=== PATIENT | female | born 1930 | race Caucasian/White ===

== ENCOUNTER 2016-12-04 16:47 | Inpatient (IN) | payer OTHER ==
[~2016-12-04] VITALS: Ht 157.5 cm; Wt 94.8 kg
--- NOTE | ~2016-12-04 | H ---
[facility] [place] [address] HISTORY AND PHYSICAL Name: MEGHAN CAMARGO Room #: 428-P ADM IN M.R.#: [id number] Admission: 12/04/16 Attend Phys: Nahid Melton MD Discharge: Date of : 31 Report #: [id number] THIS REPORT FOR: //name// CC: Ginger Melton DATE OF SERVICE: 12/04/2016 CHIEF COMPLAINT: Generalized weakness, poor appetite, possible facial droop and urinary incontinence. HISTORY OF PRESENT ILLNESS: The patient is an 86-year-old female with history of hypertension, history of urinary incontinence, recent urinary tract infection, was referred to the emergency room because of possible left-sided facial droop. The patient was diagnosed with urinary tract infection on November 17 and finished her antibiotic 8 days ago with no improvement. She has had persistent urinary incontinence. She had to use a diaper. Denies any fever, chills, no abdominal pain; no nausea, vomiting or diarrhea. The patient has had very poor appetite and generalized weakness. She does have history of urinary continence and has been taking trospium for the last 4-5 years, apparently it has not been working. She has lost around 20 pounds since Thanksgi. She has occasional blood in the urine. No dysuria. The patient denies any focal numbness or weakness of her extremity, no speech disturbance. She also complains of dry mouth. PAST MEDICAL HISTORY: Significant for hypertension, urinary incontinence, history of normal vaginal delivery, history of tonsillectomy, polio as a child. She had a pulmonary embolism in 2008, was treated with warfarin for 7-9 months. SOCIAL HISTORY: No smoking, alcohol abuse, or illicit drug abuse. FAMILY HISTORY: No hypertension or diabetes. No coronary artery disease. ALLERGIES: No known drug allergy. HOME MEDICATIONS: Includes aspirin, torsemide, lisinopril, allopurinol and trospium. REVIEW OF SYSTEMS: CONSTITUTIONAL: She has lost weight around 20 pounds since gi. No fever or chills. EYES: No change in vision. THROAT: Complains of dry mouth. CARDIOVASCULAR: No chest pain, dizziness, palpitations. RESPIRATORY: No cough, expectoration. [facility] [address] [place] [address] HISTORY AND PHYSICAL Name: MEGHAN CAMARGO Room #: 428-P [facility] IN ..#: [id number] Admission: 12/04/16 Attend Phys: Nahid Melton MD Discharge: Date of : 31 Report #: [id number] GASTROINTESTINAL: No nausea, vomiting, abdominal pain. GENITOURINARY: As above. NEUROLOGIC: No focal numbness or weakness of the extremities. PSYCHIATRIC: No anxiety or depression. The 12-point review of system is negative other than the positives and negatives dictated in the history of present illness and in the review of systems. PHYSICAL EXAMINATION: VITAL SIGNS: Blood pressure initially in the ER was 112/58, repeat is 94/49, heart rate is 105 per minute, afebrile. GENERAL: The patient is awake and alert, not in acute respiratory distress. HEENT: Pupils equal, reactive to light, nonicteric conjunctivae. THROAT: She has a dry oral mucosa. NECK: Supple, no JVD, no bruit, no lymphadenopathy. CARDIOVASCULAR SYSTEM: S1, S2, negative S3, no murmur. CHEST: Bilateral air entry present. Clear on auscultation. ABDOMEN: Soft, bowel sounds present, no mass, no organomegaly, no tenderness. PERIPHERY: No pedal edema. No calf tenderness. Dorsalis pedis 1+. NEUROLOGICAL: No gross motor or sensory deficit. She has mild right CVA tenderness. LABORATORY DATA: Reviewed. Her white count is elevated at 18.1, white count on November 17 was 14.1; hemoglobin and hematocrit are within normal limits, platelets are 263. Differential on the white count showed 77.8% segs. Coagulation studies were normal. Chemistry showed potassium of 5.7. Her bicarbonate is 26. BUN and creatinine are 61 and 2.9. Creatinine on November 17 was 1.6. She does have chronic kidney disease and is followed by Dr. Gaspar. AST and ALT are slightly elevated. Alkaline phosphatase 200, troponin less than 0.04. IMAGING: She had a CT of the brain done, which showed no acute abnormality. There is atrophy and chronic changes. She had a chest x-ray done on December 04, which showed no acute abnormality. ASSESSMENT AND PLAN: 1. Urinary incontinence with recurrent urinary tract infection. The patient will be started on IV cefepime. We will send a urine for culture and adjust antibiotic as needed. We will also consult Dr. Montesinos, urologist regarding urinary incontinence. 2. Acute renal failure, likely prerenal secondary to urinary tract infection/poor appetite/angiotensin converting enzyme inhibitor and diuretics. We will hold off on lisinopril and diuretic at present. The patient will be hydrated with IV fluids. We will get a renal ultrasound. We will also consult nephrology. 3. Deep venous thrombosis prophylaxis, will be on heparin subq for deep venous thrombosis prophylaxis. [address] [address] HISTORY AND PHYSICAL Name: MEGHAN CAMARGO Room #: 428-P [facility] IN M.R.#: [id number] Admission: 12/04/16 Attend Phys: Nahid Melton MD Discharge: Date of : 31 Report #: [id number] 4. History of hypertension. We will hold off on Demadex and lisinopril at present. Blood pressure in fact is on the lower end. She will be continued on IV hydration. 5. History of pulmonary embolism in 2008, treated with warfarin. 6. Elevated liver enzymes. We will check ultrasound of the liver and also will repeat her LFTs in the morning. Treatment plan has been explained to the patient and family in detail. <ELECTRONICALLY SIGNED> By: Nahid Melton MD 12/07/16 1417 1846 1930 Nahid Melton MD /nt
--- NOTE | ~2016-12-04 | EKG ---
[address] [address] ELECTROCARDIOGRAM REPORT Name: MEGHAN CAMARGO Room #: 428-P ADM IN M.R.#: [id number] Admission: 12/04/16 Attend Phys: Nahid Melton MD Discharge: Date of : 31 Report #: [id number] THIS REPORT FOR: //name// [facility] ED Test Date: 2016-12-04 Test Time: 16:54:06 Pat Name: MEGHAN CAMARGO Department: Room: 428 Gender: F Reel Cutter: MZOOK : 1930 Requested By: Adela Perez Order Number: [id number] MD: Braxton Griffith Measurements Intervals [place] Rate: 104 P: -33 WI: 144 QRS: -39 QRSD: 90 T: 59 QT: 305 QTc: 402 Interpretive Statements Sinus tachycardia RSR' in V1 or V2, probably normal variant Inferior infarct, old Compared to ECG 11/17/2016 14:29:58 RSR' in V1 or V2 now present Electronically Signed On 12-05-2016 8:18:51 RESPIRATORY CARE ASSISTANT by Braxton Griffith [email or web address] <ELECTRONICALLY SIGNED> By: Braxton Griffith MD 12/05/16 0818 1654 1654 Braxtno Griffith MD /EPI
--- NOTE | ~2016-12-04 | 2DMMODE ---
[facility] [place] [address] 2 D/M-MODE ECHOCARDIOGRAM Name: RAMANMEGHAN Room #: 428-P [facility] IN .R.#: [id number] Admission: 12/04/16 Attend Phys: Grant Salas Discharge: Date of : 31 Date of Service: 12/08/16 0951 Report #: [id number] THIS REPORT FOR: //name// Transthoracic Echocardiography Ordering physician: Nereida Lay Referring physician: Ginger Horta Brianna Student: RANJIT Coronel Indications/History: Aortic stenosis, Dyspnea. BP: 120 / HR: 93bpm Height: 62in Weight: 208.6lb 55 Study data: M-mode, complete 2D, complete spectral Doppler, and color Doppler. Location: Echo laboratory. Routine. Image quality was adequate. 2D measurements Normal Normal LVID ED 31.4mm 36-57 IVS ED 11.3mm 6-11 LVID ES 20.3mm 23-40 LVPW ED 11.5mm 6-11 LA volume 24ml/m2 16-28 AoRoot diam 24mm 21-37 index ED LVOT diameter 21mm 18-23 Findings: Left ventricle: The cavity size was normal. Wall thickness was at the upper limits of normal. Systolic function was hyperdynamic. The estimated ejection fraction was in the range of 65% to 70%. Wall motion was normal. Right ventricle: The cavity size was normal. Systolic function was normal. Right atrium: The atrium was normal in size. Left atrium: The atrium was normal in size. Volume index: 24ml/m2 (S). Aortic valve: Trileaflet; moderately thickened, moderately calcified leaflets. Doppler: There was moderate stenosis. Mild regurgitation. Peak velocity: 327cm/s (S). Valve [facility] [address] [place] [address] 2 D/M-MODE ECHOCARDIOGRAM Name: MEGHAN CAMARGO #: 428-P [facility] IN M.R.#: [id number] Admission: 12/04/16 Attend Phys: Grant Salas Discharge: Date of : 31 Date of Service: 12/08/16 0951 Report #: [id number] area: 1.2cm2(VTI). Mean gradient: 25.9mm Hg (S). Peak gradient: 42.8mm Hg (S). Mitral valve: Calcified annulus. Doppler: There was no evidence for stenosis. No regurgitation. Peak E-wave velocity: 66.4cm/s. Peak A-wave velocity: 113.5cm/s. Tricuspid valve: Structurally normal valve. Doppler: There was no evidence for stenosis. Trivial regurgitation. Regurgitant peak velocity: 246.9cm/s. Peak RV-RA gradient: 24mm Hg (S). Pulmonic valve: Structurally normal valve. Doppler: There was no evidence for stenosis. No regurgitation. Pericardium: There was no pericardial effusion. Aorta: Aortic root: The aortic root was normal in size. Pulmonary artery: Systolic pressure was estimated to be 29mm Hg. Diastolic function: Doppler parameters are consistent with abnormal left ventricular relaxation (grade 1 diastolic dysfunction). Systemic veins: Inferior vena cava: The vessel was normal in size; the respirophasic diameter changes were in the normal range (= 50%). Conclusions 1. Left ventricle: The cavity size was normal. Wall thickness was at the upper limits of normal. Systolic function was hyperdynamic. The estimated ejection fraction was in the range of 65% to 70%. 2. Aortic valve: Trileaflet; moderately thickened, moderately calcified leaflets. There was moderate stenosis. Mild regurgitation. 3. Mitral valve: Calcified annulus. No regurgitation. 4. Tricuspid valve: Trivial regurgitation. 5. Pulmonary arteries: Systolic pressure was estimated to be 29mm Hg. <ELECTRONICALLY SIGNED> By: Milton Patel MD 12/08/16 1041 0951 1041 Milton Patel MD /aris
--- NOTE | ~2016-12-04 | S ---
[facility] [place] [place] [address] SURGICAL PATH RPT PROCEDURE Name: ANABEL MAIER Room #: 428-P DIS IN M.R.#: [id number] Admission: 12/04/16 Date of : 31 Discharge: 12/08/16 Report #: [id number] Path Case #: [id number] PATHOLOGY REPORT COLLECTION DATE: 12/07/2016 RECEIVED DATE: 12/08/2016 SUBMITTING PHYS: Dr. Israel Figueroa OTHER PHYS: Dr. Nahid Melton SPECIMEN(S) RECEIVED: A.Left liver * * * * * * * * * * * * FINAL DIAGNOSIS: Liver, needle core biopsy: - MODERATELY DIFFERENTIATED ADENOCARCINOMA, FAVOR PANCREATOBILIARY ORIGIN. COMMENT: Multiple masses within the liver along with the largest mass lesion is gathered. Immunohistochemical stains are performed (block A1): CK7: strong membranous reactivity present; CK20: non-reactive; CK19: strong membranous reactivity present; CEA monoclonal: luminal reactivity present; TTF-1: non-reactive; CDX2: reactivity present; ER: non-reactive. Based on the immunohistochemical stains, the tumor may likely represent an adenocarcinoma of pancreatobiliary origin. Other lesions with similar immunohistochemical profiles (CK7 and CK19 reactivity) include adenocarcinomas of upper gastrointestinal tract, breast, ovarian, lung or thyroid origins . Hepatocellular carcinoma is usually CK7, C20 and CK19 non-reactive. Clinical correlation is suggested. Co-review: Dr. Najma Alva. Findings of this case are relayed to Dr. Jorge Muñoz at 3:34 pm on 12/11/16. (IUV:csd; d/t: 12/11/2016) PATHOLOGIST: Margret Seaman M.D. REPORT ELECTRONICALLY SIGNED BY: Margret Seaman M.D. DATE/TIME: 12/11/2016 15:40 * * * * * * * * * * * * GROSS PATHOLOGY: [facility] [address] [place] [address] SURGICAL PATH RPT PROCEDURE Name: ANABEL MAIER Room #: 428-P [facility] IN [facility].#: [id number] Admission: 12/04/16 Date of : 31 Discharge: 12/08/16 Report #: [id number] Path Case #: [id number] The specimen is received in formalin, labeled "Anabel Maier and liver bx." Received is a 2.2 x 0.5 x 0.3 cm aggregate of quick-brown, rubbery, and irregular soft tissue fragments. The specimen is entirely submitted in cassette A1. (TTL; 12/08/2016) CLINICAL HISTORY: Numerous mets INITIAL CPT CODE(S): A; 08866, 66589, 78945, 54454, 34775, 35029, 45886, 80174 Professional services performed by [employer], [address] [address]. Technical services performed by [facility] at [address] [place] [address]. [facility] [address] [address] PHONE: [phone] DIRECTOR: Durga Redd M.D. * * * END OF REPORT * * *
--- NOTE | ~2016-12-04 | HC ---
[facility] [place] [address] CONSULTATION Name: RAMANMEGHAN Shante Room #: 428-P ADM IN M.R.#: [id number] Admission: 12/04/16 Attend Phys: Nahid Melton MD Discharge: Date of : 31 Report #: [id number] THIS REPORT FOR: //name// CC: Ginger Melton DATE OF SERVICE: 12/05/2016 REASON FOR CONSULTATION: Elevated creatinine. HISTORY OF PRESENT ILLNESS: The patient known to our service, sees Dr. Avril Gaspar in the office for chronic renal failure and followup, with baseline creatinine of 1.6. She has had longstanding hypertension. I am not aware of a specific renal diagnosis. She does get lower extremity swelling and has had urinary tract infections. She has hypertension. Over the last several weeks, she has had progressive failure to thrive, weight loss, poor appetite, has become easily short of breath. She had a documented urinary tract infection, treated with Keflex a couple of weeks ago, now presents again with weakness, failure to thrive, a question of facial droop and bacteriuria without leukocyturia. She is admitted for further treatment and evaluation. Her serum creatinine at the time of admission is only up to 2.9 with a BUN of 61, potassium of 5.7. HOME MEDICATIONS: Include allopurinol 300 mg daily, aspirin 81 mg daily, lisinopril 5 mg daily, metoprolol tartrate 25 mg b.i.d., torsemide 10 mg daily and trospium 20 mg daily. PAST MEDICAL HISTORY: She had a pulmonary embolus, possible rheumatic fever as a teenager and a history of polio. She has also had hypertension as mentioned. SOCIAL HISTORY: She is a remote smoker. Does drink a glass of wine or so every day. FAMILY HISTORY: Negative for renal disease, heart disease or diabetes, no known medical allergies. REVIEW OF SYSTEMS: GENERAL: She has been feeling poorly. EYES: Vision is , no change in there. ENT: Hearing okay, swallows okay. There has been some complaint of dry mouth. ENDOCRINE: No diabetes or thyroid disease. RESPIRATORY: She has become easily short-winded, but there has not been any hemoptysis. CARDIAC: Denies any chest pain. She does get chronic swelling of her lower extremities. [address] [address] CONSULTATION Name: MEGHAN CAMARGO Room #: 428-P [facility] IN .R.#: [id number] Admission: 12/04/16 Attend Phys: Nahid Melton MD Discharge: Date of : 31 Report #: [id number] GASTROINTESTINAL: Poor appetite, but no nausea, vomiting, abdominal pain or diarrhea. GENITOURINARY: No dysuria or frequency. NEUROLOGIC: She had maybe a little bit of left facial droop by report, it is not swelling not obvious. SKELETAL: Denies arthritis. Extensive history taken from the patient, from the electronic medical record, from the office medical records and from the at bedside. PHYSICAL EXAMINATION: VITAL SIGNS: This is a well-preserved elderly patient, giving a very lucid and good history. Seems a little bit weak. SKIN: Unremarkable. SKELETAL: Somewhat overweight. HEENT: Extraocular movements are full. Vision is intact. No scleral icterus. Hearing intact. Mucous membranes are slightly dry. NECK: Supple. The neck veins are flat. There are no carotid bruits or lymphadenopathy. CHEST: Completely clear to auscultation. HEART: Regular without murmurs, gallops or rubs. ABDOMEN: Soft and nontender, without bruits, masses or organomegaly. EXTREMITIES: Show no edema, no foot ulcers were noted. NEUROLOGIC: Grossly intact. LABORATORY DATA: As mentioned, creatinine was 2.9, down to 2.2 with overnight IV fluids; potassium 5.7, down to 5.2. The transaminases are elevated with AST of 70, ALT of 68, alkaline phosphatase 187, calcium was elevated at 11.1 with albumin only 3.1. Hemoglobin 11.4, white count 14.2, platelets 199. Urinalysis showed bacteriuria, but no leukocyturia. ASSESSMENT: 1. Acute kidney injury. The patient with acute kidney injury has shown improvement with IV hydration. Her lisinopril and torsemide were appropriately stopped. She seems to be somewhat volume depleted. She has been eating or drinking well or feeling well for that matter. She does have known chronic kidney disease. I do not believe her kidneys are much involved with current illness. 2. Possible hepatic masses. Her renal sonogram showed possible hepatic masses. She certainly will need a CT to look at that. 3. Chronic hypertension. 4. Chronic kidney disease. 5. History of pulmonary embolus. 6. Hypercalcemia, certainly somewhat also suggestive and supportive of possible malignancy. Paraprotein studies will be sent. [address] [address] CONSULTATION Name: MEGHAN CAMARGO Room #: 428-P ADM IN M.R.#: [id number] Admission: 12/04/16 Attend Phys: Nahid Melton MD Discharge: Date of : 31 Report #: [id number] 7. Bacteriuria without leukocyturia. Treatment probably optional at this point. <ELECTRONICALLY SIGNED> By: Rao Yeager MD 12/06/16 1212 0938 1156 Rao Yeager MD /nt
--- NOTE | ~2016-12-04 | HC ---
[facility] [place] [address] CONSULTATION Name: MEGHAN CAMARGO Room #: 428-P ADM IN M.R.#: [id number] Admission: 12/04/16 Attend Phys: Nahid Melton MD Discharge: Date of : 31 Report #: [id number] THIS REPORT FOR: //name// CC: Vikram Melton DATE OF SERVICE: 12/06/2016 REASON FOR CONSULTATION: 1. Urinary urgency incontinence. 2. Persistent urinary tract infection. HISTORY OF PRESENT ILLNESS: The patient is an 86-year-old female suffers from a longstanding urinary urgency incontinence, which was managed with anticholinergic therapy in the form of Trospium. The patient around Thanksgiving time developed worsening urinary incontinence and irritative voiding symptoms, was treated for urinary tract infection with Keflex, her bladder control has been persistently poor and she is noted to have a persistent urinary tract infection despite being on a course of oral antibiotics, the suspicion would be of resistant organism. Urine culture and sensitive obtained during this hospital admission confirms the presents of greater than ten to the fifth Gram-negative rods. The patient is currently on cefepime. She was admitted specifically to [facility] for failure to thrive. She has had a 20-pound weight loss with intermittent constipation issues, very poor appetite, and generalized weakness. She has an underlying history of renal insufficiency, which was acutely worsened on presentation. PAST MEDICAL HISTORY: Pertinent for hypertension, urinary incontinence, and pulmonary embolism. PAST SURGICAL HISTORY: Pertinent for remote tonsillectomy. SOCIAL HISTORY: The patient is , does not use alcohol, tobacco products, or recreational drugs. FAMILY HISTORY: Essentially noncontributory. ALLERGIES: None known. MEDICATIONS: Baseline medications on admission included torsemide, lisinopril, allopurinol, aspirin, and Trospium. REVIEW OF SYSTEMS: Twelve-point review of systems pertinent for 20-pound weight loss and generalized anorexia. The patient also was having some shortness of [facility] [address] [place] [address] CONSULTATION Name: RAMANMEGHAN J Room #: 428-P [facility] IN [facility].#: [id number] Admission: 12/04/16 Attend Phys: Nahid Melton MD Discharge: Date of : 31 Report #: [id number] breath dyspnea with exertion. Constipation is noted in the history of present illness. Genitourinary review as above. PHYSICAL EXAMINATION: GENERAL: The patient is currently in no acute distress. HEENT: Normocephalic, atraumatic. NECK: Supple. Thyroid is not palpable. LUNGS: Reveal some scattered rhonchi. CARDIOVASCULAR: Regular rate and rhythm without murmur. ABDOMEN: Soft with normoactive bowel sounds. PELVIC: Deferred. RECTAL: Deferred. EXTREMITIES: Negative for edema. LABORATORY DATA: The patient's admitting creatinine was 2.9, now down to 1.4 with hydration, potassium slightly elevated at 5.5. White blood count is 11, hemoglobin and hematocrit 10.4 and 32.7 respectively. The patient's urinalysis, specific gravity was 1.010, pH was 5, nitrites were positive, there were no red or white cells seen and many bacteria. IMAGING STUDIES: The patient has had an abdominal ultrasound study, kidneys were normal in size without evidence of hydronephrosis. The liver is diffusely heterogeneous with multiple intrinsic masses. IMPRESSION: 1. Chronic cystitis with likely resistant organism. 2. Underlying urgency incontinence exacerbated by cystitis. PLAN AND DISCUSSION: The patient is currently on cefepime and has had already clinical improvement in her voiding parameters. We will await culture and sensitive studies and continue oral antibiotics as an outpatient. The patient has already scheduled to see Dr. Mesa in follow up within the office at the end of this month. Urology service will follow during the hospital course. <ELECTRONICALLY SIGNED> By: Bay Montesinos MD 12/06/16 1417 0725 0756 Bay Montesinos MD /nt
--- NOTE | ~2016-12-04 | S ---
[facility] [address] [place] [address] SURGICAL PATH RPT PROCEDURE Name: MEGHAN CAMARGO Room #: 428-P ADM IN M.R.#: [id number] Admission: 12/04/16 Date of : 31 Discharge: Report #: [id number] Path Case #: [id number] PATHOLOGY REPORT DRAFT COLLECTION DATE: 12/07/2016 RECEIVED DATE: 12/07/2016 SPECIMEN(S) RECEIVED: Brooke liver
--- NOTE | ~2016-12-04 | EKG ---
[address] [address] ELECTROCARDIOGRAM REPORT Name: MEGHAN CAMARGO Room #: 428-P ADM IN M.R.#: [id number] Admission: 12/04/16 Attend Phys: Nahid Melton MD Discharge: Date of : 31 Report #: [id number] THIS REPORT FOR: //name// [facility] Test Date: 2016-12-08 Test Time: 06:56:40 Pat Name: MEGHAN CAMARGO Department: Room: 428 P Gender: F Quality Assurance Director: alphonso : 1930 Requested By: Nereida Lay Order Number: [id number] MD: Eligio Kimble Measurements Intervals [place] Rate: 74 P: 10 [place]: 151 QRS: -31 QRSD: 98 T: 19 QT: 378 QTc: 420 Interpretive Statements Sinus rhythm Left axis deviation Compared to ECG 12/07/2016 15:24:19 Sinus tachycardia no longer present Atrial premature complex(es) no longer present Electronically Signed On 12-08-2016 8:02:22 LABOR RELATIONS OFFICER by Eligio Kimble [email or web address] <ELECTRONICALLY SIGNED> By: Eligio Kimble MD, [facility] 12/08/16 0802 0656 0656 Eligio Kimble MD, [facility] /EPI
--- NOTE | ~2016-12-04 | EKG ---
[address] [address] ELECTROCARDIOGRAM REPORT Name: MEGHAN CAMARGO Room #: 428-P ADM IN M.R.#: [id number] Admission: 12/04/16 Attend Phys: Nahid Melton MD Discharge: Date of : 31 Report #: [id number] THIS REPORT FOR: //name// [facility] Test Date: 2016-12-07 Test Time: 15:24:19 Pat Name: MEGHAN CAMARGO Department: Room: 428 P Gender: F Typing Bookkeeper: Grant GUTIERREZ : 1930 Requested By: Nereida Lay Order Number: [id number] MD: Braxton Griffith Measurements Intervals [place] Rate: 104 P: -34 UT: 164 QRS: -38 QRSD: 92 T: 29 QT: 319 QTc: 420 Interpretive Statements Sinus tachycardia Atrial premature complex Inferior infarct, old Electronically Signed On 12-07-2016 16:52:08 CERTIFIED PEST CONTROL TECHNICIAN by Braxton Griffith [email or web address] <ELECTRONICALLY SIGNED> By: Braxton Griffith MD 12/07/16 1652 1524 1524 Braxton Griffith MD /IVONNE
--- NOTE | ~2016-12-04 | HC ---
[facility] [place] [address] CONSULTATION Name: MEGHAN CAMARGO Room #: 428-P ADM IN M.R.#: [id number] Admission: 12/04/16 Attend Phys: Nahid Melton MD Discharge: Date of : 31 Report #: [id number] THIS REPORT FOR: //name// CC: Vikram Melton MD REASON FOR CONSULTATION: Abnormal ultrasound of the liver and elevated liver function tests. HISTORY OF PRESENT ILLNESS: The patient is a very pleasant 86-year-old female with her 2 daughters present as well as her Anupam. The patient has been minding her own business so to speak but having some longstanding urinary urgency issues and was recently found to have worsened incontinence, irritating and voiding symptoms and an infection. They have treated with several oral antibiotics, this worsened and she came in here, has also recent 20-pound weight loss, poor hepatitis, generalized weakness with a history of underlying renal insufficiency. The patient at this time denies any headache, fevers, chills, nausea, vomiting, blood in urine or stool, ankle or arm swelling, belly pain. PAST MEDICAL HISTORY: Notable for history of hypertension, bulbar polio, urinary incontinence, history of pulmonary embolism, thought to be unprovoked maybe about 7 years ago, was on about 7-9 months of anticoagulation, also has a history of remote tonsillectomy. SOCIAL HISTORY: She is originally from the [place]. She is retired. She helped to raise several children. She lives in [place] now, stopped smoking number of years ago. Does drinks occasional wine. No street drugs, last colonoscopy 10 years ago, EGD 10 years ago, was scheduled to see Dr. Israel Verdugo next week for possible endoscopy. FAMILY HISTORY: Really no one else with any cancers or blood disorders. Medications prior to admission included torsemide, lisinopril, allopurinol, aspirin and trospium. MEDICATIONS: Here in the hospital include [place] 60 mg daily, lorazepam had been given very p.r.n. is still on cefepime, low dose aspirin, heparin 5000 units q. 12 hours and IV fluids. ALLERGIES: None. [address] [address] CONSULTATION Name: RAMANMEGHAN Room #: 428-P [facility] IN .R.#: [id number] Admission: 12/04/16 Attend Phys: Nahid Melton MD Discharge: Date of : 31 Report #: [id number] PHYSICAL EXAMINATION: GENERAL: The patient appears her stated age. Height is 5 feet 2 inches, 157.5 cm. Weight 209 pounds or 94.8 kilograms. VITAL SIGNS: Blood pressure is 116/62, O2 sat 93%, respirations 18, pulse 99, temperature 98.1. NEUROLOGIC: The patient's face is symmetrical, answers questions well. Moving extremities well. HEENT: Oropharynx is clear, without injection or masses. LUNGS: Clear, symmetric, unlabored respirations. No rhonchi or wheezes. HEART: Regular rate. LYMPHATICS: No enlarged lymph nodes in the supraclavicular, cervical, axillary region. Note that mammogram is about 5 years out of date. She is not aware of any masses. ABDOMEN: Slightly obese. No organomegaly or tenderness. EXTREMITIES: Without clubbing, cyanosis. There is perhaps trace edema. RECENT LABORATORY DATA: Here showed on admission a creatinine at 2.9, down to 2.2 yesterday, down to 1.4 today, BUN done to 37, AST had been 78 on admission, was 70 yesterday, not drawn today. Total bilirubin normal, calcium had been 11.1 then 10.4, today is 9.5. Alkaline phosphatase had been 200, down to 187 yesterday. ALT had been 60, was down to 60 normal range yesterday, total protein 6.8, albumin 2.6. Coags: INR 1.1, APTT 25.2. Serum protein electrophoresis is pending. White cell count had been 18.1, is now 11.1. Recent admitting this had been 14.1 in October, 9.7 in 2012. Hemoglobin on admission 12.2, today 10.4, had been 13.3 in 08/2013. MCV had been 85 several years ago, has more recently 81 and 82, RDW 15, platelets 186. Differential slight left shift. No promonocytes, metamyelocytes, or acute forms. Dipstick here did show positive for nitrite, negative for leukocytes. Discussed with patient and family that there is some concern about radiologic studies showed report. The radiologic studies this admission include an ultrasound of abdomen done to evaluate for liver functions and acute renal failure and there is mild splenomegaly, diffuse heterogenous liver suggested multiple intrinsic masses which are nonspecific, they suggested CT abdomen with contrast, which were now be ordered. A CT of the head showed no acute intracranial processes. The patient did have a CT, CTA of the chest, but has been probably since 2013. ASSESSMENT AND PLAN: 1. Abnormal liver function tests and ultrasound, we will order CAT scan with contrast of abdomen and pelvis and await, also did talk about possibility of biopsy if indicated and the patient and family would like to consider this and probably proceed if needed. We will also need to see whether other lesions are seen and also need a followup and whether EGD from 10 years ago needs to be done before next week. 2. Elevated liver function tests, follow serially, possible biopsy as above. [facility] [place] [address] CONSULTATION Name: MEGHAN CAMARGO Room #: 428-P ADM IN M.R.#: [id number] Admission: 12/04/16 Attend Phys: Nahid Melton MD Discharge: Date of : 31 Report #: [id number] 3. Anemia with decrease of MCV. We will check iron studies, also will need to keep followup with GI. 4. Elevated creatinine, better after hydration. 5. Elevated calcium down after hydration, which continues SPEP pending. 6. History of chronic cystitis and incontinence. Defer to others. 7. Urinary tract infection. Continue cefepime and antibiotics per others. 8. Hypertension. Medicines per others. 9. History of bulbar polio. therapy. 10. History of unprovoked pulmonary embolism, has been on prophylatic heparin. We will follow with you. <ELECTRONICALLY SIGNED> By: Jagjit Muñoz MD 12/07/16 0857 0916 1018 Jagjit Muñoz MD /nt
[~2016-12-04 16:47] MED LIST: ALLOPURINOL 30300 M2 PO; ASPIRIN EC81 M1 PO; DEMADEX10 MG PO; DOXYCYCLINE 10100 M1 PO; KEFLEX500 MG PO; LISINOPRIL5 MG PO; LOPRESSOR25 PO; SIMVASTATIN10 MG PO; TROSPIUM CHLORI20 MG PO
[2016-12-04 16:48] VITALS: BP 112/58
[2016-12-04 17:29] LABS: ABSOLUTE NEUTROPHILS 14.1 thou/uL (1.4-8.2); BASOPHILS 0.4 % (0.0-2.0); EOSINOPHILS 0.9 % (0.0-3.0); HEMATOCRIT 37.8 % (37.0-47.0); HEMOGLOBIN 12.2 gm/dL (12.0-15.0); MCH 26.3 pg (26.0-34.0); MCHC 32.4 % (28.0-37.0); MCV 81.2 fL (80.0-100.0); MONOCYTES 10.9 % (1.0-8.0); PLATELET COUNT 263 thou/uL (150-400); POLYS 77.8 % (36.0-66.0); RBC 4.65 mil/uL (4.20-5.00); RDW 15.1 % (10.5-14.5); WBC 18.1 thou/uL (4.0-11.0)
[2016-12-04 17:30] LABS: MANUAL DIFF NO
[2016-12-04 17:38] LABS: ANION GAP 11 mmol/L (7-16); BUN 61 mg/dL (7-18); CALCIUM 11.1 mg/dL (8.5-10.1); CHLORIDE 97 mmol/L (98-107); CO2 26 mmol/L (21-32); CREATININE 2.9 mg/dL (0.6-1.3); GLUCOSE 153 mg/dL (70-99); POTASSIUM 5.7 mmol/L (3.5-5.1); SODIUM 134 mmol/L (136-145)
[2016-12-04 17:43] LABS: APTT 25.2 Seconds (24.5-32.8); INR 1.1; PROTIME 11.9 Seconds (9.3-11.4)
[2016-12-04 17:46] LABS: ALBUMIN 3.5 g/dL (3.4-5.0); ALKALINE PHOSPHATASE 200 U/L (46-116); SGOT 78 U/L (15-37); SGPT 68 U/L (30-65); TOTAL BILIRUBIN 0.7 mg/dL (<0.1-1.0); TOTAL PROTEIN 8.1 g/dL (6.4-8.2); TROPONIN-I < 0.04 ng/mL (<0.04-0.07)
[2016-12-04 17:49] LABS: URINE BILIRUBIN NEGATIVE (Negative); URINE BLOOD NEGATIVE (Negative); URINE COLOR YELLOW; URINE GLUCOSE-RANDOM* NEGATIVE (Negative); URINE KETONES NEGATIVE (Negative); URINE LEUKOCYTES-REFLEX NEGATIVE (Negative); URINE PROTEIN (DIPSTICK) NEGATIVE (Negative); URINE UROBILINOGEN 0.2 E.U./dl (0.2-1.0)
[2016-12-04 17:51] LABS: SQUAMOUS 0-3 Few /LPF (0-3)
[2016-12-04 17:52] LABS: CASTS None Seen /LPF (None Seen); CRYSTALS None Seen /LPF (None Seen); URINE RBC None Seen /HPF (0-2); URINE WBC-REFLEX None Seen /HPF (0-5)
[2016-12-04 19:11] VITALS: BP 129/67
[2016-12-04 20:00] VITALS: BP 131/75
[2016-12-05 04:00] VITALS: BP 107/61
[2016-12-05 05:39] LABS: ABSOLUTE NEUTROPHILS 10.6 thou/uL (1.4-8.2); BASOPHILS 0.5 % (0.0-2.0); HEMATOCRIT 34.9 % (37.0-47.0); HEMOGLOBIN 11.4 gm/dL (12.0-15.0); LYMPHOCYTES 10.9 % (24.0-44.0); MCH 26.3 pg (26.0-34.0); MCHC 32.7 % (28.0-37.0); MCV 80.5 fL (80.0-100.0); MONOCYTES 11.5 % (1.0-8.0); PLATELET COUNT 199 thou/uL (150-400); POLYS 75.1 % (36.0-66.0); RBC 4.34 mil/uL (4.20-5.00); RDW 14.9 % (10.5-14.5); WBC 14.2 thou/uL (4.0-11.0)
[2016-12-05 05:41] LABS: MANUAL DIFF NO
[2016-12-05 05:57] LABS: CALCIUM 10.4 mg/dL (8.5-10.1); CREATININE 2.2 mg/dL (0.6-1.3); MAGNESIUM 1.8 mg/dL (1.8-2.4); POTASSIUM 5.2 mmol/L (3.5-5.1)
[2016-12-05 06:01] LABS: ALBUMIN 3.1 g/dL (3.4-5.0); DIRECT BILIRUBIN 0.2 mg/dL (<0.1-0.3); TOTAL BILIRUBIN 0.8 mg/dL (<0.1-1.0); TOTAL PROTEIN 6.8 g/dL (6.4-8.2)
[2016-12-05 07:23] VITALS: BP 98/59
[2016-12-05 07:29] VITALS: BP 128/55
[2016-12-05 16:30] VITALS: BP 11/56; BP 111/56
[2016-12-05 21:00] VITALS: BP 107/64
[2016-12-06 04:30] VITALS: BP 98/53
[2016-12-06 06:49] LABS: ABSOLUTE NEUTROPHILS 7.9 thou/uL (1.4-8.2); BASOPHILS 0.8 % (0.0-2.0); EOSINOPHILS 2.9 % (0.0-3.0); HEMATOCRIT 32.7 % (37.0-47.0); HEMOGLOBIN 10.4 gm/dL (12.0-15.0); LYMPHOCYTES 13.7 % (24.0-44.0); MCH 26.3 pg (26.0-34.0); MCHC 31.9 % (28.0-37.0); MCV 82.4 fL (80.0-100.0); MONOCYTES 11.8 % (1.0-8.0); PLATELET COUNT 186 thou/uL (150-400); POLYS 70.8 % (36.0-66.0); RBC 3.97 mil/uL (4.20-5.00); WBC 11.1 thou/uL (4.0-11.0)
[2016-12-06 07:05] LABS: MANUAL DIFF NO
[2016-12-06 07:07] LABS: ALBUMIN 2.6 g/dL (3.4-5.0); CALCIUM 9.5 mg/dL (8.5-10.1); CREATININE 1.4 mg/dL (0.6-1.3); PHOSPHORUS 2.9 mg/dL (2.5-4.9); POTASSIUM 5.5 mmol/L (3.5-5.1)
[2016-12-06 08:13] VITALS: BP 116/62
[2016-12-06 13:08] LABS: KAPPA FREE LIGHT CHAINS 72.33 mg/L (3.30-19.40); KAPPA/LAMBDA RATIO 1.81 (0.26-1.65); LAMBDA FREE LIGHT CHAINS 39.99 mg/L (5.71-26.30)
[2016-12-06 16:32] VITALS: BP 149/77
[2016-12-06 18:33] LABS: HEMATOCRIT 32.9 % (37.0-47.0); HEMOGLOBIN 10.6 gm/dL (12.0-15.0); MCH 26.2 pg (26.0-34.0); MCHC 32.3 % (28.0-37.0); MCV 81.2 fL (80.0-100.0); RBC 4.05 mil/uL (4.20-5.00); RDW 15.1 % (10.5-14.5); WBC 12.4 thou/uL (4.0-11.0)
[2016-12-06 18:46] LABS: CALCIUM 9.8 mg/dL (8.5-10.1); CREATININE 1.3 mg/dL (0.6-1.3); POTASSIUM 5.1 mmol/L (3.5-5.1)
[2016-12-06 18:48] LABS: INR 1.2; PROTIME 12.1 Seconds (9.3-11.4)
[2016-12-06 20:00] VITALS: BP 133/64
[2016-12-07 04:00] VITALS: BP 103/54
[2016-12-07 04:43] LABS: HEMATOCRIT 31.3 % (37.0-47.0); HEMOGLOBIN 10.1 gm/dL (12.0-15.0); MCH 26.6 pg (26.0-34.0); MCHC 32.3 % (28.0-37.0); MCV 82.4 fL (80.0-100.0); PLATELET COUNT 193 thou/uL (150-400); RDW 14.8 % (10.5-14.5); WBC 11.6 thou/uL (4.0-11.0)
[2016-12-07 04:44] LABS: MANUAL DIFF YES
[2016-12-07 04:57] LABS: ALBUMIN 2.4 g/dL (3.4-5.0); CALCIUM 9.6 mg/dL (8.5-10.1); CREATININE 1.2 mg/dL (0.6-1.3); PHOSPHORUS 2.3 mg/dL (2.5-4.9); POTASSIUM 5.3 mmol/L (3.5-5.1)
[2016-12-07 05:57] LABS: ABSOLUTE NEUTROPHILS 8.5 thou/uL (1.4-8.2); MYELOCYTES 1 %; TOTAL CELL COUNT 100
[2016-12-07 05:58] LABS: ANISOCYTOSIS SLIGHT; MACROCYTES SLIGHT
[2016-12-07 07:23] VITALS: BP 103/54
[2016-12-07 07:57] VITALS: BP 115/56
[2016-12-07 12:09] LABS: A/G RATIO 0.9 (0.7-1.7); ALBUMIN 3.1 g/dL (2.9-4.4); ALPHA 1 0.4 g/dL (0.0-0.4); ALPHA 2 0.9 g/dL (0.4-1.0); BETA 1.1 g/dL (0.7-1.3); M-SPIKE Not Observed g/dL (Not Observed)
[2016-12-07 14:22] VITALS: BP 106/58
[2016-12-07 15:06] LABS: % SATURATION 18 % (15-55); IRON 35 ug/dL (27-139); TIBC 194 ug/dL (250-450); UIBC 159 ug/dL (118-369)
[2016-12-07 16:25] VITALS: BP 120/66
[2016-12-07 16:31] LABS: NT-PRO BRAIN NAT PEPTIDE 1081 pg/mL (<300); TROPONIN-I < 0.04 ng/mL (<0.04-0.07)
[2016-12-07 18:02] VITALS: BP 120/66
[2016-12-08 04:10] VITALS: BP 95/42
[2016-12-08 06:41] LABS: ABSOLUTE NEUTROPHILS 8.6 thou/uL (1.4-8.2); BASOPHILS 0.7 % (0.0-2.0); EOSINOPHILS 2.1 % (0.0-3.0); HEMATOCRIT 31.8 % (37.0-47.0); HEMOGLOBIN 10.3 gm/dL (12.0-15.0); LYMPHOCYTES 15.1 % (24.0-44.0); MCH 26.3 pg (26.0-34.0); MCHC 32.5 % (28.0-37.0); MONOCYTES 11.7 % (1.0-8.0); PLATELET COUNT 211 thou/uL (150-400); POLYS 70.4 % (36.0-66.0); RBC 3.93 mil/uL (4.20-5.00); RDW 14.8 % (10.5-14.5); WBC 12.2 thou/uL (4.0-11.0)
[2016-12-08 06:45] LABS: MANUAL DIFF NO
[2016-12-08 06:52] LABS: CALCIUM 9.9 mg/dL (8.5-10.1); CREATININE 1.5 mg/dL (0.6-1.3); POTASSIUM 5.5 mmol/L (3.5-5.1)
[2016-12-08 07:47] VITALS: BP 120/55
[2016-12-08] MEDS ORDERED: ATENOLOL 25MG T25 M1 PO (12:23)
[2016-12-08] MEDS ORDERED: CIPRO250 M1 PO (12:23)
[2016-12-08 14:47] VITALS: BP 120/66
== END 2016-12-08 14:35 | disposition home health service (06) | DRG 871 ==
LOC: ER 16:47 → 4E 18:22 → EROBS 18:22 → 4E 18:53
PROVIDERS: Emergency Medicine; Internal Medicine; Internal Medicine Cardiovascular Disease; Internal Medicine Endocrinology, Diabetes & Metabolism; Internal Medicine Hematology & Oncology; Internal Medicine Nephrology
PROC: 0FB23ZX Excision of Left Lobe Liver, Percutaneous Approach, Diagnostic (ICD-10-PCS; principal; 2016-12-07)
DX: A41.9 Sepsis, unspecified organism (principal); N17.0 Acute kidney failure with tubular necrosis; N39.0 Urinary tract infection, site not specified; I47.1 Supraventricular tachycardia; E44.1 Mild protein-calorie malnutrition; E83.52 Hypercalcemia; A80.9 Acute poliomyelitis, unspecified; I35.0 Nonrheumatic aortic (valve) stenosis; N18.9 Chronic kidney disease, unspecified; I12.9 Hypertensive chronic kidney disease with stage 1 through stage 4 chronic kidney disease, or unspecified chronic kidney disease; R32 Unspecified urinary incontinence; R62.7 Adult failure to thrive; Z83.3 Family history of diabetes mellitus; Z79.899 Other long term (current) drug therapy; Z79.82 Long term (current) use of aspirin; Z79.01 Long term (current) use of anticoagulants; Z87.891 Personal history of nicotine dependence; Z82.49 Family history of ischemic heart disease and other diseases of the circulatory system; Z98.890 Other specified postprocedural states; Z68.38 Body mass index [BMI] 38.0-38.9, adult
CPT/HCPCS: 10183

== ENCOUNTER 2016-12-14 03:10 | Inpatient (IN) | payer OTHER ==
[~2016-12-14] VITALS: Ht 160 cm; Wt 94.0 kg
--- NOTE | ~2016-12-14 | EKG ---
[address] [address] ELECTROCARDIOGRAM REPORT Name: MEGHAN CAMARGO Room #: 247-P ADM IN M.R.#: [id number] Admission: 12/14/16 Attend Phys: Sancho Salmeron DO Discharge: Date of : 31 Report #: [id number] THIS REPORT FOR: //name// [facility] Test Date: 2016-12-14 Test Time: 14:56:56 Pat Name: MEGHAN CAMARGO Department: Room: 247 P Gender: F Drywaller: Grant GUTIERREZ : 1930 Requested By: Chepe Paulson Order Number: [id number] MD: Braxton Griffith Measurements Intervals [place] Rate: 128 P: -54 DE: 144 QRS: -46 QRSD: 100 T: 65 QT: 300 QTc: 438 Interpretive Statements Atrial tachycardia Inferior infarct, old Compared to ECG 12/14/2016 03:15:18 No significant changes Electronically Signed On 12-14-2016 15:55:57 OPERATIONS LIEUTENANT by Braxton Griffith [email or web address] <ELECTRONICALLY SIGNED> By: Braxton Griffith MD 12/14/16 1555 1456 1456 Braxton Griffith MD /IVONNE
--- NOTE | ~2016-12-14 | EKG ---
[address] [address] ELECTROCARDIOGRAM REPORT Name: MEGHAN CAMARGO Room #: 247-P ADM IN M.R.#: [id number] Admission: 12/14/16 Attend Phys: Angel Krueger MD Discharge: Date of : 31 Report #: [id number] THIS REPORT FOR: //name// [facility] ED Test Date: 2016-12-14 Test Time: 03:15:18 Pat Name: MEGHAN RAMAN Department: Room: [facility] Gender: F Clinical Data Specialist: NEGRA : 1930 Requested By: Skyler Marquez Order Number: [id number] MD: Braxton Griffith Measurements Intervals [place] Rate: 129 P: -55 MA: 123 QRS: -50 QRSD: 88 T: 69 QT: 296 QTc: 434 Interpretive Statements Sinus or ectopic atrial tachycardia Abnormal R-wave progression, late transition Inferior infarct, old Compared to ECG 12/08/2016 06:56:40 Myocardial infarct finding now present Sinus rhythm no longer present Left-axis deviation no longer present Electronically Signed On 12-14-2016 8:08:06 POLYSOMNOGRAPHIC TECHNICIAN by Braxton Griffith [email or web address] <ELECTRONICALLY SIGNED> By: Braxton Griffith MD 12/14/16 0808 4 4 Braxton Griffith MD /EPI
--- NOTE | ~2016-12-14 | HC ---
[facility] [place] [address] [place] [address] CONSULTATION Name: MEGHAN CAMARGO Room #: 306-P ADM IN M.R.#: [id number] Admission: 12/14/16 Attend Phys: Sancho Salmeron DO Discharge: Date of : 31 Report #: [id number] THIS REPORT FOR: //name// CC: Vikram Verdugo MD [facility] physician/PCP Rao Krueger MD HISTORY OF PRESENT ILLNESS: The patient is a very pleasant 86-year-old female who I met on the last admit with new finding of soft tissue masses in the liver. One of these was biopsied in the interim. 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 Note that when her scan was done last admit, we saw no pancreatic or gallbladder masses or biliary obstruction. I spent a lot of time talking with the patient and her family, including a son and daughter today, that this is stage 4, not curable, potentially treatable. We did also talk that given her age that potentially treating this could actually make her feel worse with side effects. Her elderly , Anupam, is not here at this time, but I worry about her ability to enjoy quality time with him during what time she has left. She asked about prognosis and I would worry that it may be somewhere in the range of 3-9 months. The patient came in yesterday and it sounds like she had a few days or may be at least half-day length of chest pressure in the left upper neck and she would had contributed to that, not really changed, may be a little bit better when she got up and moved around, but not really changed by eating, drinking or other activities. Also, she was found to be tachycardic here. PAST MEDICAL HISTORY: Past history is notable for history of hypertension, bulbar polio, chronic cystitis, history of pulmonary embolism, thought to be unprovoked and also remote tonsillectomy. SOCIAL HISTORY: Originally from [place]. She is retired. Helped raise several children. Lives in [facility]. Stopped smoking a number of years ago. Rare alcohol. No street drugs. Last colonoscopy 10 years ago, EGD 10 years ago. FAMILY HISTORY: No one else with blood or cancer disorders. ALLERGIES: None. MEDICATIONS: At this time in the hospital include nitroglycerin p.r.n. sublingual, Zofran p.r.n. and [place] [address] CONSULTATION Name: MEGHAN CAMARGO Room #: 306-P [facility] IN ..#: [id number] Admission: 12/14/16 Attend Phys: Sancho Salmeron DO Discharge: Date of : 31 Report #: [id number] PHYSICAL EXAMINATION: GENERAL: The patient appears her stated age. She is in ICU bed. VITAL SIGNS: Height is 5 feet 3 inches, weight 207 pounds. Blood pressure is 109/59, O2 sat 98%, pulse 97, respirations 20 and temperature 97.6. NEUROLOGIC: Face is symmetrical. She is moving extremities. MOOD: She is alert and pleasant and appears to be a reliable historian. LUNGS: Have symmetric, unlabored respirations. CARDIAC: Regular rate. ABDOMEN: Obese. No masses. EXTREMITIES: Without clubbing or cyanosis. There is trace edema. LABORATORY DATA: Lab review here shows creatinine of 1.4. ALT 78. Albumin 2.7, alkaline phosphatase 365. Pro-BNP is 1319. Coags were normal. Also, note at last admit, had an SPEP without an M-spike. White count is 15.2, up from 12.2 last admit; hemoglobin 11.3 and platelets are 276,000. Note also when she was here last time, CA 19-9 was 39 and CEA was 150.2 and ratio was slightly elevated. Urine at this time was negative for nitrite. ASSESSMENT AND PLAN: 1. 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 I would be worried about the patient's ability to tolerate and benefit from therapy. I might consider a CT scan. I would probably find myself leaning towards palliative care and no active intervention, but if she wishes to try some medications, such as Gemzar and Abraxane, we could. Response rate may be in the range of 10%-20%. I am not sure if there will be a survival benefit. I would worry that she might get excess toxicity. 2. History of bulbar polio, not an issue. 3. Chest pressure and tachycardia at admit. Had been on metoprolol, now off. We will call Dr. Chepe Paulson at family's request to help sort out some of her medications. 4. History of cystitis. We will defer to others. 5. Elevated creatinine. Hydrate cautiously. 6. Elevated liver function tests, most likely related to liver metastasis. 7. Hypertension, meds. 8. History of pulmonary emboli. Prophylactic measures as needed. We will follow with you. <ELECTRONICALLY SIGNED> By: Jagijt Muñoz MD 12/15/16 0733 0853 1019 Jagjit Muñoz MD /nt
--- NOTE | ~2016-12-14 | HC ---
[facility] [place] [address] [place] [address] CONSULTATION Name: MEGHAN CAMARGO Room #: 306-P ADM IN M.R.#: [id number] Admission: 12/14/16 Attend Phys: Sancho Salmeron DO Discharge: Date of : 31 Report #: [id number] THIS REPORT FOR: //name// CC: [facility] physician/PCP Sancho Salmeron INDICATION: Tachycardia. HISTORY OF PRESENT ILLNESS: This is a pleasant 86-year-old female presenting with chest pains and palpitations. She had recently been in the hospital for urinary tract infection and dyspnea. At the alf facility, she was found to have a low blood pressure and the beta lana was held. When she presented to the ER, she was noted to be tachycardic with a heart rate of 150 beats per minute. The ECG had been reviewed, consistent with atrial tachycardia. She reports having a burning sensation in the mid chest area. Serial troponins negative times 3. She reports no episodes of shortness of breath or congestion. PAST MEDICAL HISTORY: Moderate aortic stenosis, recently diagnosed with pancreatic biliary carcinoma, hypertension, chronic edema and chronic renal insufficiency. ALLERGIES: None. MEDICATIONS: Demadex 10 mg, aspirin, beta lana has been held. SOCIAL HISTORY: Negative for tobacco use. FAMILY HISTORY: Negative for premature CAD. REVIEW OF SYSTEMS: A full 10-point review of systems performed. Only the pertinent positives and negatives are described in the HPI. PHYSICAL EXAMINATION: VITAL SIGNS: Blood pressure is 105/60, heart rate is 120 beats per minute. GENERAL APPEARANCE: Elderly appearing female in no acute respiratory distress. HEAD AND EYES: Normocephalic. Sclerae are anicteric. ENT: Oral mucosa moist. NECK: Supple. LUNGS: Clear to auscultation. CARDIAC: Tachycardic S1, S2 positive. ABDOMEN: Soft. EXTREMITIES: No major joint deformities, 1+ bilateral edema. LABORATORY VALUES: Serial troponins are negative times 3. White count is 15.2, hemoglobin is 11.3. Sodium is 133, BUN is 47, creatinine is 1.4. [address] [address] CONSULTATION Name: MEGHAN CAMARGO Shante Room #: 306-P ADM IN M.R.#: [id number] Admission: 12/14/16 Attend Phys: Sancho Salmeron DO Discharge: Date of : 31 Report #: [id number] ASSESSMENT AND PLAN: 1. Atrial tachycardia, had been stable with atenolol. However, she has been experiencing low blood pressure and this has been held. We will start the patient on amiodarone, as this will keep the heart rate is under control. 2. Aortic stenosis/moderate, stable with no symptoms of dyspnea. 3. Chest pain, noncardiac in etiology. Serial troponins are negative. May be related to a gastrointestinal etiology. 4. Metastatic pancreatic biliary carcinoma, as per oncology. 5. Edema, chronic. 6. Hypertension. 7. Chronic renal insufficiency. Thank you for allowing me to participate in the care of your patient. <ELECTRONICALLY SIGNED> By: Chepe Paulson MD 12/15/16 0757 1718 0153 Chepe Paulson MD /nt
[~2016-12-14 03:10] MED LIST changes: +ATENOLOL 25MG T25 M1 PO; +CIPRO250 M1 PO
[2016-12-14 03:15] VITALS: BP 117/72
[2016-12-14 03:31] LABS: HEMATOCRIT 34.6 % (37.0-47.0); HEMOGLOBIN 11.3 gm/dL (12.0-15.0); MCH 26.3 pg (26.0-34.0); MCHC 32.7 % (28.0-37.0); MCV 80.5 fL (80.0-100.0); PLATELET COUNT 276 thou/uL (150-400); RDW 15.2 % (10.5-14.5); WBC 15.2 thou/uL (4.0-11.0)
[2016-12-14 03:38] LABS: MANUAL DIFF YES
[2016-12-14 03:40] LABS: CALCIUM 10.3 mg/dL (8.5-10.1); CREATININE 1.4 mg/dL (0.6-1.3); POTASSIUM 4.6 mmol/L (3.5-5.1)
[2016-12-14 03:49] LABS: APTT 25.2 Seconds (24.5-32.8); INR 1.2; PROTIME 12.2 Seconds (9.3-11.4)
[2016-12-14] MEDS ORDERED: COLACE100 MG PO (03:49)
[2016-12-14 04:08] LABS: MAGNESIUM 1.9 mg/dL (1.8-2.4); TOTAL BILIRUBIN 0.7 mg/dL (<0.1-1.0)
[2016-12-14 04:09] LABS: ALBUMIN 2.7 g/dL (3.4-5.0); CK-MB MASS 1.2 ng/mL (<0.5-3.6); TOTAL PROTEIN 7.3 g/dL (6.4-8.2)
[2016-12-14 04:23] LABS: ABSOLUTE NEUTROPHILS 11.9 thou/uL (1.4-8.2); METAMYELOCYTES 2 %; TOTAL CELL COUNT 100
[2016-12-14 05:01] LABS: URINE BILIRUBIN NEGATIVE (Negative); URINE BLOOD NEGATIVE (Negative); URINE COLOR YELLOW; URINE GLUCOSE-RANDOM* NEGATIVE (Negative); URINE KETONES NEGATIVE (Negative); URINE LEUKOCYTES-REFLEX NEGATIVE (Negative); URINE PROTEIN (DIPSTICK) NEGATIVE (Negative); URINE UROBILINOGEN 0.2 E.U./dl (0.2-1.0)
[2016-12-14 05:56] VITALS: BP 109/59
[2016-12-14 06:12] VITALS: BP 112/68
[2016-12-14 08:00] VITALS: BP 111/63
[2016-12-14 12:00] VITALS: BP 114/72
[2016-12-14 16:00] VITALS: BP 111/66
[2016-12-15] VITALS (7 sets, daily range): BP systolic 110–122; BP diastolic 51–74
[2016-12-15 06:35] LABS: ABSOLUTE NEUTROPHILS 9.2 thou/uL (1.4-8.2); BASOPHILS 0.8 % (0.0-2.0); EOSINOPHILS 2.9 % (0.0-3.0); HEMATOCRIT 30.4 % (37.0-47.0); HEMOGLOBIN 9.8 gm/dL (12.0-15.0); LYMPHOCYTES 11.9 % (24.0-44.0); MCH 26.1 pg (26.0-34.0); MCHC 32.2 % (28.0-37.0); MCV 81.2 fL (80.0-100.0); MONOCYTES 11.5 % (1.0-8.0); PLATELET COUNT 241 thou/uL (150-400); POLYS 72.9 % (36.0-66.0); RBC 3.75 mil/uL (4.20-5.00); RDW 15.2 % (10.5-14.5); WBC 12.6 thou/uL (4.0-11.0)
[2016-12-15 06:41] LABS: MANUAL DIFF NO
[2016-12-15 06:48] LABS: CALCIUM 9.9 mg/dL (8.5-10.1); CREATININE 1.1 mg/dL (0.6-1.3); POTASSIUM 4.8 mmol/L (3.5-5.1)
[2016-12-15] MEDS ORDERED: PACERONE 200 M200 M1 PO (09:41)
[2016-12-15] MEDS ORDERED: ATIVAN0.5 MG PO (09:42)
== END 2016-12-15 17:11 | disposition home or self-care (01) | DRG 435 ==
LOC: ER 03:10 → EROBS 05:20 → ICU 05:20 → 3N 18:10
PROVIDERS: Emergency Medicine; Family Medicine
DX: C25.9 Malignant neoplasm of pancreas, unspecified (principal); J18.9 Pneumonia, unspecified organism; C78.7 Secondary malignant neoplasm of liver and intrahepatic bile duct; I47.2 Ventricular tachycardia; R07.9 Chest pain, unspecified; E86.0 Dehydration; N18.9 Chronic kidney disease, unspecified; F41.9 Anxiety disorder, unspecified; D72.829 Elevated white blood cell count, unspecified; I35.0 Nonrheumatic aortic (valve) stenosis; Z79.899 Other long term (current) drug therapy; Z79.82 Long term (current) use of aspirin; Z86.711 Personal history of pulmonary embolism
CPT/HCPCS: 10096